=== PATIENT | female | born 1955 | race Caucasian/White ===

== ENCOUNTER 2018-07-18 18:59 | Emergency (ER) | payer OTHER ==
[~2018-07-18] VITALS: Ht 154.9 cm; Wt 55.8 kg
[2018-07-18 19:02] VITALS: BP_SYST 160
[2018-07-18] MEDS ORDERED: ONDANSETRON 4 MG ODT TAB PO ONE (19:30)
[2018-07-18] MEDS ORDERED: ACETAMINOPHEN 500 MG TABLET PO ONE (19:30)
[2018-07-18 22:02] VITALS: BP_SYST 142
== END 2018-07-18 22:02 | disposition home or self-care (01) ==
LOC: SED 18:59
DX: S63.501A Unspecified sprain of right wrist, initial encounter (principal); S63.502A Unspecified sprain of left wrist, initial encounter; S93.401A Sprain of unspecified ligament of right ankle, initial encounter; S09.90XA Unspecified injury of head, initial encounter; R03.0 Elevated blood-pressure reading, without diagnosis of hypertension; Z88.0 Allergy status to penicillin; Z88.5 Allergy status to narcotic agent; V02.99XA Pedestrian with other conveyance injured in collision with two- or three-wheeled motor vehicle, unspecified whether traffic or nontraffic accident, initial encounter; Y93.89 Activity, other specified; Y92.481 Parking lot as the place of occurrence of the external cause; Y99.8 Other external cause status
CPT/HCPCS: 70450-TC; 99283; 99284; Q0162